=== PATIENT | female | born 1955 | race Caucasian/White ===

== ENCOUNTER 2020-11-29 16:25 | Emergency (ER) | payer MEDICARE, OTHER ==
--- NOTE | 2020-11-29 17:55 | EDM.PDOC ---
ED HPI GENERAL MEDICAL PROBLEM - General Chief Complaint: Cardiovascular Problem Stated Complaint: A FIB Time Seen by Provider: 11/29/20 17:46 - History of Present Illness INITIAL COMMENTS - FREE TEXT/NARRATIVE: 65-year-old female presents the emergency room with new onset A. fib. The onset of this dysrhythmia is unclear. She has had some intermittent problems with some dizziness but this goes back quite a ways and it is unclear if it is associated with her A. fib. Earlier today the patient was sitting with an in-law who was checking her blood pressure she thought she would check her ears because of the dizziness and noticed the pulse rate was a little high a little more than 100 which is unusual for her. She was seen in the [facility] they did an EKG that showed atrial fibrillation. She was sent here for further evaluation. Patient really is not having any chest pain breathing difficulties or shortness of breath. She has no prior history of heart problems. She is visiting the area from the [facility]. - Related Data Allergies Allergy/AdvReac Type Severity Reaction Status Date / Time No Known Allergies Allergy Verified 11/29/20 16:36 Home Meds: Home Meds Apixaban [Eliquis] 5 mg PO BID #60 tablet 11/29/20 [Rx] Metoprolol Succinate [Toprol Xl] 25 mg PO DAILY #30 tab.er.24h 11/29/20 [Rx] Omeprazole 20 mg PO DAILY 11/29/20 [History] Past Medical History - Past Health History Medical/Surgical History: Denies Medical/Surgical History Social & Family History - Tobacco Use Tobacco Use Status *Q: Never Tobacco User - Recreational Drug Use Recreational Drug Use: No ED ROS GENERAL - Review of Systems Review Of Systems: See Below Constitutional: Reports: No Symptoms HEENT: Reports: Other (Dizziness intermittent). Denies: No Symptoms Respiratory: Reports: No Symptoms Cardiovascular: Reports: Lightheadedness. Denies: Chest Pain, Dyspnea on Exertion Endocrine: Reports: No Symptoms GI/Abdominal: Reports: No Symptoms Neurological: Reports: No Symptoms ED EXAM, GENERAL - Physical Exam Exam: See Below Exam Limited By: No Limitations General Appearance: Alert, No Apparent Distress Head: Atraumatic, Normocephalic Neck: Normal Inspection, Supple, Non-Tender, Full Range of Motion Respiratory/Chest: No Respiratory Distress, Lungs Clear, Normal Breath Sounds Cardiovascular: No Edema, No Murmur, Irregularly Irregular, Other (Pulse rate around 100) GI/Abdominal: Normal Bowel Sounds, Soft, Non-Tender Back Exam: Normal Inspection. No: CVA Tenderness (L), CVA Tenderness (R) Extremities: Normal Inspection, No Pedal Edema Neurological: Alert, Oriented, Normal Cognition #1 Interpretation EKG Date: 11/29/20 Rhythm: Other (A. fib unifocal PVCs) [place]: Normal P-Wave: Absent (Fast a flutter not excluded could be baseline artifact) QRS: Normal ST-T: Other (Specific nondiagnostic changes) QT: Normal Comparison: NA - No Prior EKG EKG Interpretation Comments: Abnormal EKG probable A. fib Course - Vital Signs Last Recorded V/S: Last Vital Signs Temp 37.1 C 11/29/20 16:34 Pulse 113 H 11/29/20 16:34 Resp 16 11/29/20 16:34 BP 168/138 H 11/29/20 16:34 Pulse Ox 100 11/29/20 16:34 - Orders/Labs/Meds Orders: Active Orders 24 hr Category Date Time Status EKG Documentation Completion [RC] ASDIRECTED Care 11/29/20 16:38 Active Chest 1V Frontal [CR] Stat Exams 11/29/20 17:55 Taken EKG 12 Lead [EK] Stat Ther 11/29/20 16:37 Ordered Labs: Laboratory Tests 11/29/20 11/29/20 11/29/20 Range/Units 16:45 17:06 17:06 WBC 5.50 (3.98-10.04) K/mm3 RBC 3.83 L (3.98-5.22) M/mm3 Hgb 10.7 L (11.2-15.7) gm/dl Hct 34.3 (34.1-44.9) % MCV 89.6 (79.4-94.8) fl MCH 27.9 (25.6-32.2) pg MCHC 31.2 L (32.2-35.5) g/dl RDW Std Deviation 44.8 (36.4-46.3) fL Plt Count 306 (182-369) K/mm3 MPV 9.3 L (9.4-12.3) fl Neut % (Auto) 66.0 (34.0-71.1) % Lymph % (Auto) 23.8 (19.3-51.7) % [place] % (Auto) 8.0 (4.7-12.5) % Eos % (Auto) 1.6 (0.7-5.8) Baso % (Auto) 0.4 (0.1-1.2) % Neut # (Auto) 3.63 (1.56-6.13) K/mm3 Lymph # (Auto) 1.31 (1.18-3.74) K/mm3 [place] # (Auto) 0.44 H (0.24-0.36) K/mm3 Eos # (Auto) 0.09 (0.04-0.36) K/mm3 Baso # (Auto) 0.02 (0.01-0.08) K/mm3 PT 11.0 (9.7-12.0) SECONDS INR 1.03 APTT 25.4 (21.7-31.4) SECONDS Sodium (136-145) mEq/L Potassium (3.5-5.1) mEq/L Chloride (98-107) mEq/L Carbon Dioxide (21-32) mEq/L Anion Gap (5-15) BUN (7-18) mg/dL Creatinine (0.55-1.02) mg/dL Est Cr Clr Drug Dosing mL/min Estimated GFR (MDRD) (>60) mL/min BUN/Creatinine Ratio (14-18) Glucose (80-115) mg/dL Calcium (8.5-10.1) mg/dL Magnesium (1.8-2.4) mg/dl Total Bilirubin (0.2-1.0) mg/dL AST (15-37) U/L ALT (14-59) U/L Alkaline Phosphatase (46-116) U/L Troponin I (0.00-0.056) ng/mL Total Protein (6.4-8.2) g/dl Albumin (3.4-5.0) g/dl Globulin gm/dL Albumin/Globulin Ratio (1-2) SARS-CoV-2 RNA (JENNY) Negative (NEGATIVE) 11/29/20 11/29/20 Range/Units 17:06 17:06 WBC (3.98-10.04) K/mm3 RBC (3.98-5.22) M/mm3 Hgb (11.2-15.7) gm/dl Hct (34.1-44.9) % MCV (79.4-94.8) fl MCH (25.6-32.2) pg MCHC (32.2-35.5) g/dl RDW Std Deviation (36.4-46.3) fL Plt Count (182-369) K/mm3 MPV (9.4-12.3) fl Neut % (Auto) (34.0-71.1) % Lymph % (Auto) (19.3-51.7) % [place] % (Auto) (4.7-12.5) % Eos % (Auto) (0.7-5.8) Baso % (Auto) (0.1-1.2) % Neut # (Auto) (1.56-6.13) K/mm3 Lymph # (Auto) (1.18-3.74) K/mm3 [place] # (Auto) (0.24-0.36) K/mm3 Eos # (Auto) (0.04-0.36) K/mm3 Baso # (Auto) (0.01-0.08) K/mm3 PT (9.7-12.0) SECONDS INR APTT (21.7-31.4) SECONDS Sodium 143 (136-145) mEq/L Potassium 4.0 (3.5-5.1) mEq/L Chloride 107 (98-107) mEq/L Carbon Dioxide 27 (21-32) mEq/L Anion Gap 13.0 (5-15) BUN 16 (7-18) mg/dL Creatinine 1.1 H (0.55-1.02) mg/dL Est Cr Clr Drug Dosing 50.75 mL/min Estimated GFR (MDRD) 50 (>60) mL/min BUN/Creatinine Ratio 14.5 (14-18) Glucose 99 (80-115) mg/dL Calcium 9.3 (8.5-10.1) mg/dL Magnesium 2.0 (1.8-2.4) mg/dl Total Bilirubin 0.5 (0.2-1.0) mg/dL AST 14 L (15-37) U/L ALT 20 (14-59) U/L Alkaline Phosphatase 66 (46-116) U/L Troponin I < 0.017 (0.00-0.056) ng/mL Total Protein 7.8 (6.4-8.2) g/dl Albumin 3.6 (3.4-5.0) g/dl Globulin 4.2 gm/dL Albumin/Globulin Ratio 0.9 L (1-2) SARS-CoV-2 RNA (JENNY) (NEGATIVE) - Re-Assessments/Exams Free Text/Narrative Re-Assessment/Exam: 11/29/20 19:40 Patient has done well here in the emergency room, started on low-dose Toprol-XL 25 mg a day she will be in the vicinity for the next few weeks and can follow-up at the [facility], and I do recommend this in 2 days for recheck. She was also be started on Eliquis 5 mg twice daily. Baby aspirin 81 mg to be continued Departure - Departure Time of Disposition: 19:41 Disposition: Home, Self-Care 01 Clinical Impression: Atrial fibrillation Referrals: PCP,Not In Area [Primary Care Provider] - Forms: ED Department Discharge Additional Instructions: Return to the emergency room with any questions problems worsening symptoms. You have been started on 2 medications 1 is Toprol-XL, or Metroprolol take 1 daily. Start this this evening and take 1 every evening. The second medication is Eliquis this is a anticoagulation to reduce the risk of stroke with A. fib. Take 5 mg twice daily starting this evening. Follow-up in the [facility] in 2 days for recheck. The metoprolol dosage can be adjusted if needed. It is not unreasonable for you to also take a baby aspirin 81 mg daily. Follow-up with cardiology is recommended when you return home in 3 weeks. Sepsis Event Note (ED) - Evaluation Sepsis Screening Result: No Definite Risk - Focused Exam Vital Signs: Vital Signs Temp Pulse Resp BP Pulse Ox 11/29/20 16:34 37.1 C 113 H 16 168/138 H 100 - My Orders Last 24 Hours: My Active Orders 11/29/20 16:37 EKG 12 Lead [EK] Stat 11/29/20 16:38 EKG Documentation Completion [RC] ASDIRECTED 11/29/20 17:55 Chest 1V Frontal [CR] Stat - Assessment/Plan Last 24 Hours: My Active Orders 11/29/20 16:37 EKG 12 Lead [EK] Stat 11/29/20 16:38 EKG Documentation Completion [RC] ASDIRECTED 11/29/20 17:55 Chest 1V Frontal [CR] Stat
--- NOTE | 2020-11-30 10:12 | CR ---
Chest: Portable view of the chest was obtained. Comparison: No prior chest imaging is available. Heart is enlarged. Tortuous thoracic aorta is seen. Pulmonary vessels are minimally increased which are most likely chronic. No acute parenchymal change is seen. Slight scoliosis is noted within the spine. Diffuse osteopenia is noted. Impression: 1. Cardiomegaly. 2. Nothing acute is otherwise seen. Diagnostic code #2
== END 2020-11-29 20:05 | disposition home or self-care (01) ==
LOC: JD.ED 16:25
DX: I48.91 Unspecified atrial fibrillation (principal); Z20.822 Contact with and (suspected) exposure to COVID-19; Z79.01 Long term (current) use of anticoagulants; Z79.899 Other long term (current) drug therapy
CPT/HCPCS: 36415; 71045; 80053; 83735; 84484; 85025; 85610; 85730; 93005; 99285; U0002; 93010; 99284